=== PATIENT | female | born 1975 | race Caucasian/White ===

== ENCOUNTER 2018-10-25 06:05 | Inpatient (IN) | payer OTHER ==
[~2018-10-25] VITALS: Ht 162.6 cm; Wt 123.0 kg
[2018-10-25 06:30] VITALS: BP 142/74
[2018-10-25 13:34] VITALS: BP 133/70
[2018-10-25 16:34] VITALS: BP 108/70
[2018-10-25 21:20] VITALS: BP 124/76
[2018-10-26 05:32] VITALS: BP 118/69
[2018-10-26 07:06] LABS: CALCIUM 8.1 mg/dL (8.5-10.1); CHLORIDE SERUM 104 mmol/L (98-107); CREATININE SERUM 0.7 mg/dL (0.6-1.0); GFR1 > 60 mL/min; GLUCOSE SERUM 103 mg/dL (74-106); POTASSIUM SERUM 3.8 mmol/L (3.5-5.1); SODIUM SERUM 137 mmol/L (136-145)
[2018-10-26 07:29] LABS: BASOPHIL % 0.3 % (0-2); PLATELET COUNT 219 x10^3mcL (130-400)
[2018-10-26 08:55] VITALS: BP 138/81
[2018-10-26 16:48] VITALS: BP 124/79
[2018-10-26 20:54] VITALS: BP 148/77
[2018-10-27 06:04] VITALS: BP 143/86
[2018-10-27 09:45] VITALS: BP 138/82
[2018-10-27 12:46] VITALS: BP 146/86
[2018-10-27 16:23] VITALS: BP 140/80
[2018-10-27 19:50] VITALS: BP 136/69
[2018-10-28 05:47] VITALS: BP 106/63
[2018-10-28 08:51] VITALS: BP 136/77
[2018-10-28 17:06] VITALS: BP 134/79
[2018-10-28 17:08] VITALS: BP 134/79
== END 2018-10-28 18:51 | disposition home or self-care (01) | DRG 513 ==
LOC: MU 06:05
PROVIDERS: ADMIT Obstetrics & Gynecology
PROC: 0UT90ZL Resection of Uterus, Supracervical, Open Approach (ICD-10-PCS; principal; 2018-10-25 07:30)
DX: N73.6 Female pelvic peritoneal adhesions (postinfective) (principal); N80.9 Endometriosis, unspecified; N92.1 Excessive and frequent menstruation with irregular cycle; N94.6 Dysmenorrhea, unspecified
CPT/HCPCS: J0690; J1170; J1885; J2270; J3010; J3490; J7120